=== PATIENT | female | born 1965 | race Caucasian/White ===

== ENCOUNTER 2017-04-07 08:37 | Emergency (ER) | payer BC ==
[2017-04-07 08:47] VITALS: BP 105/59
--- NOTE | 2017-04-07 09:08 | UC ---
Ave Traylor Thomas, scribed for Lesli Cooley MD on 04/07/17 at 0905 . Ear Complaint HPI - HPI Summary HPI Summary: The pt is a 51 y/o F presenting to E c/o bilateral ear pain that began last week. She describes pruritus in her ear and some drainage. She rates the pain 3/ 10 and describes it as aching, burning, and stabbing. Pt additionally c/o ear drainage (gooey). Pt denies fevers, chills, rashes, sinus pressure, and sore throat. Pt has not applied any drops to her ears. Pt states last ear infection approx 1 year ago. PT was swimming in [place] 1 month ago. No sinus pain, grewal, vision changes. PMHx: Lyme disease, asthma (as child), negative DM. 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 SHx: daily alcohol, former smoker, no illicit drugs. FHx: [place]. She last swam in [facility] a month ago. Her last episode of ear infection was last year. She last had antibiotics last year. She also reports prior episodes of yeast overgrowth in her ears. Patients medication reviewed this visit. - History of Current Complaint Chief Complaint: UCEar Stated Complaint: EAR PAIN Time Seen by Provider: 04/07/17 08:50 Hx Obtained From: Patient Onset/Duration: Lasting Weeks - 1 week, Still Present Severity Initially: Mild Severity Currently: Mild Pain Intensity: 3 Pain Scale Used: 0-10 Numeric Aggravating Factors: Nothing Alleviating Factors: Nothing Associated Signs/Symptoms: Positive: Discharge. Negative: Trauma to Ear Related History: Other (Noted In Comments) - Prior ear infections - Allergies/Home Medications Allergies/Adverse Reactions: Allergies Allergy/AdvReac Type Severity Reaction Status Date / Time Seasonal Allergy Congestion Uncoded 04/07/17 08:47 Home Medications: Home Medications Chhinese Herbs 04/07/17 [History] Progesterone (Bulk) [Progesterone Concentrate] 04/07/17 [History] PMH/Surg Hx/FS Hx/Imm Hx Previously Healthy: No - Lyme disease Other Endocrine History: Negative for DM Respiratory History: Asthma - childhood - Surgical History Surgical History: Yes Surgery Procedure, Year, and Place: Hysterectomy, fibrous adenoma right breast - Family History Known Family History: Positive: Other - POS: [place] Negative: Diabetes - Social History Occupation: Employed Full-time Lives: Alone Alcohol Use: Daily Alcohol Amount: 1 glass of wine a night Substance Use Type: None Smoking Status (MU): Former Smoker When Did the Patient Quit Smoking/Using Tobacco: 16 years ago Review of Systems Constitutional: Negative Skin: Negative Eyes: Negative ENT: Ear Ache - bilateral, 3/10, aching/burning/stabbing, Other - POS: ear drainage ("gooey") Respiratory: Negative Cardiovascular: Negative Gastrointestinal: Negative Genitourinary: Negative Motor: Negative Neurovascular: Negative Musculoskeletal: Negative Neurological: Negative Psychological: Negative All Other Systems Reviewed And Are Negative: Yes Physical Exam Triage Information Reviewed: Yes Appearance: Well-Appearing, No Pain Distress, Well-Nourished Vital Signs: Initial Vital Signs Temp 98.6 F 04/07/17 08:41 Pulse 59 04/07/17 08:41 Resp 18 04/07/17 08:41 BP 105/59 04/07/17 08:41 Pulse Ox 100 04/07/17 08:41 Vital Signs Reviewed: Yes Eye Exam: Normal Eyes: Positive: Conjunctiva Clear ENT: Positive: Hearing grossly normal, Pharynx normal, TMs normal, Other: - canals inflammed, erythema no odor, no appreciable discharge No mastoid pain. Negative: TM bulging, TM dull, TM red, Tonsillar swelling, Tonsillar exudate Dental Exam: Normal Neck exam: Normal Neck: Positive: Supple, Nontender Respiratory Exam: Normal Respiratory: Positive: Chest non-tender, Lungs clear, Normal breath sounds, No respiratory distress, No accessory muscle use Cardiovascular Exam: Normal Cardiovascular: Positive: RRR, No Murmur, Pulses Normal Abdominal Exam: Normal Abdomen Description: Positive: Nontender, No Organomegaly Musculoskeletal Exam: Normal Neurological Exam: Normal Neurological: Positive: Alert Psychological Exam: Normal Psychological: Positive: Normal Response To Family Skin Exam: Normal Ear Complaint Course/Dx - Course Course Of Treatment: The patient is a 51 y/o F presenting to [facility] [place] with bilateral ear pain and drainage progressive x 1 week Pt swimming 4 weeks ago. On exam canals inflammed, erythema. Prabhakar Rx ciprodex. PCP f/u. return precautions. She was instructed to follow up with her PCP. - Differential Dx/Diagnosis Provider Diagnoses: otitis externa bilateral Discharge - Discharge Plan Condition: Stable Disposition: HOME Prescriptions: Ciproflox/Dexameth OTIC.SUSP* [Ciprodex OTIC.SUSP*] 2 drop .SEE ORDER TID #1 btl Patient Education Materials: Otitis Externa (ED) Referrals: Linda Shin MD [Primary Care Provider] - Additional Instructions: - Your ear canal is inflammed and red. There is also a small scratch in your left canal - either from Q tip of your finger nail - Apply ear drops as prescribed. these contain a steroid and will help with itching and discomfort - It is recommended you contact your doctor to arrange a follow-up appointment. Contact your doctor or return with questions or concerns The documentation as recorded by the Aev wetzel Thomas accurately reflects the service I personally performed and the decisions made by , Lesli Cooley MD.
== END 2017-04-07 09:15 | disposition home or self-care (01) ==
LOC: UCEAST 08:37
DX: H60.93 Unspecified otitis externa, bilateral (principal); Z87.891 Personal history of nicotine dependence
CPT/HCPCS: 99212; G0463

== ENCOUNTER 2017-04-13 08:36 | Emergency (ER) | payer BC ==
[2017-04-13 08:40] VITALS: BP 106/70
--- NOTE | 2017-04-13 08:49 | UC ---
Skin Complaint HPI - HPI Summary HPI Summary: 6 DAYS OF STREAKY, RED, BLISTERY RASH ON LEGS AND ARMS. WAS OUT GARDENING PRIOR TO ONSET. FEELS LIKE POISON NII. NO FEVER. - History of Current Complaint Chief Complaint: UCRash Time Seen by Provider: 04/13/17 08:48 Stated Complaint: RASH Hx Obtained From: Patient Hx Last Menstrual Period: hysterectomy Onset/Duration: Gradual Onset, Lasting Days, Still Present Timing: Constant Onset Severity: Moderate Current Severity: Moderate Pain Intensity: 8 Pain Scale Used: 0-10 Numeric Location: Other - ARMS AND LEGS Character: Pruritus, Redness, Raised Aggravating: Touch Alleviating: Nothing Associated Signs & Symptoms: Positive: Rash - Allergy/Home Medications Allergies/Adverse Reactions: Allergies Allergy/AdvReac Type Severity Reaction Status Date / Time Seasonal Allergy Congestion Uncoded 04/13/17 08:40 Review of Systems Constitutional: Negative Skin: Rash Respiratory: Negative Cardiovascular: Negative Gastrointestinal: Negative All Other Systems Reviewed And Are Negative: Yes PMH/Surg Hx/FS Hx/Imm Hx Respiratory History: Asthma - Surgical History Surgical History: Yes Surgery Procedure, Year, and Place: Hysterectomy, fibrous adenoma right breast - Family History Known Family History: Positive: Other - POS: [place] Negative: Diabetes - Social History Alcohol Use: Daily Alcohol Amount: 1 glass of wine a night Substance Use Type: None Smoking Status (MU): Former Smoker When Did the Patient Quit Smoking/Using Tobacco: 16 years ago Physical Exam Triage Information Reviewed: Yes Appearance: Well-Appearing, No Pain Distress, Well-Nourished Vital Signs: Initial Vital Signs Temp 98.2 F 04/13/17 08:36 Pulse 74 04/13/17 08:36 Resp 20 04/13/17 08:36 BP 106/70 04/13/17 08:36 Pulse Ox 100 04/13/17 08:36 Vital Signs Reviewed: Yes Eyes: Positive: Conjunctiva Clear ENT: Positive: Hearing grossly normal Neck: Positive: Supple Respiratory: Positive: No respiratory distress, No accessory muscle use Cardiovascular: Positive: Pulses Normal Abdomen Description: Positive: Soft Musculoskeletal: Positive: No Edema Neurological: Positive: Alert Psychological: Positive: Age Appropriate Behavior Skin: Positive: rashes - STREAKY, VESICULAR RASH WITH SLIGHT SURROUNDING ERYTHEMA AND EXCORIATION OVER ARMS AND LEGS Course/Dx - Diagnoses Provider Diagnoses: CONTACT DERMATITIS Discharge - Discharge Plan Condition: Stable Disposition: HOME Prescriptions: Triamcinolone 0.1% CREAM(NF) [Kenalog Cream 0.1%(NF)] 1 applic TOPICAL TID PRN # 1 tube PRN Reason: Itching predniSONE TAB* [Deltasone TAB*] 50 mg PO DAILY #7 tab Patient Education Materials: Contact Dermatitis (ED) Referrals: Linda Shin MD [Primary Care Provider] - If Needed Additional Instructions: USE DAILY MOISTURIZING LOTION AVOID HEAT AND HOT WATER TAKE OTC ANTIHISTAMINE DAILY (CLARITIN (LORATADINE), ZYRTEC (CETIRIZINE) OR LIANE (FEXOFENADINE) IN THE MORNING, BENADRYL AT NIGHT) DO NOT SCRATCH KEEP COOL, CLEAN AND DRY SEEK FOLLOW-UP IF NOT IMPROVING EXPECTED.
== END 2017-04-13 09:15 | disposition home or self-care (01) ==
LOC: UCEAST 08:36
DX: L25.9 Unspecified contact dermatitis, unspecified cause (principal); Z90.710 Acquired absence of both cervix and uterus; J45.909 Unspecified asthma, uncomplicated; Z87.891 Personal history of nicotine dependence
CPT/HCPCS: 99212; G0463

== ENCOUNTER 2017-04-15 10:59 | Emergency (ER) | payer BC ==
[2017-04-15 11:33] VITALS: BP 112/53
--- NOTE | 2017-04-15 12:30 | UC ---
William Traylor Alfonso, scribed for Nydia Alva MD on 04/15/17 at 1136 . Skin Complaint HPI - HPI Summary HPI Summary: This patient is a 51 year old F presenting to [facility] accompanied by with a chief complaint of a diffuse rash which began approximately one week ago, was diagnosed as poison hunter dermatitis 04/13/17 treated with topical and oral steroids and pt presents today with concern that the poison hunter is now infected because it is more red and painful and draining more. The CC is described as painful and pruritic. The patient rates the pain 5/10 in severity. Symptoms aggravated and alleviated by nothing. Patient reports throat pain, dizziness, and haziness. She was seen at [facility] two days ago with a diagnosis of contact dermatitis and prescriptions for oral prednisone and topical triamcinolone. At triage pt "just doesn't feel well" and is noted with very irregular heart rate, in the 40's to 60's. EKG done. PMHx of Lyme disease over a year ago, and a re- exposure this season without further treatment. Patients medications reviewed this visit. Allergies noted. - History of Current Complaint Chief Complaint: UCRash Stated Complaint: SKIN COMPLAINT Hx Obtained From: Patient Hx Last Menstrual Period: hysterectomy Onset/Duration: Sudden Onset, Lasting Weeks - 1, Still Present Skin Exposure Onset/Duration: Weeks Ago - 1 Timing: Constant Onset Severity: Moderate Current Severity: Moderate Pain Intensity: 5 Pain Scale Used: 0-10 Numeric Location: Diffuse Character: Pruritus, Pain, Redness, Raised Aggravating: Nothing Alleviating: Nothing Associated Signs & Symptoms: Positive: Weakness, Rash, Lightheadedness, Drainage. Negative: Cough, Throat Tightening, Red Streaks Related History: Possible Reaction to: Environmental Exposure - poison hunter and ticks - Allergy/Home Medications Allergies/Adverse Reactions: Allergies Allergy/AdvReac Type Severity Reaction Status Date / Time Seasonal Allergy Congestion Uncoded 04/15/17 11:13 Review of Systems Constitutional: Other - "just doesn't fell well" Skin: Rash ENT: Other - Positive throat pain. Musculoskeletal: Arthralgia Neurological: Other - Positive dizziness and haziness. All Other Systems Reviewed And Are Negative: Yes PMH/Surg Hx/FS Hx/Imm Hx Previously Healthy: No - Lyme disease Other Endocrine History: Lyme disease - Surgical History Surgical History: Yes Surgery Procedure, Year, and Place: Hysterectomy, fibrous adenoma right breast - Family History Known Family History: Positive: Other - POS: [place] Negative: Diabetes - Social History Lives: With Family Alcohol Use: Daily Alcohol Amount: 1 glass of wine a night Substance Use Type: None Smoking Status (MU): Former Smoker When Did the Patient Quit Smoking/Using Tobacco: 16 years ago Physical Exam Triage Information Reviewed: Yes Appearance: Well-Appearing, Well-Nourished, Pain Distress Vital Signs: Initial Vital Signs Temp 97.7 F 04/15/17 11:13 Pulse 50 04/15/17 11:13 Resp 16 04/15/17 11:13 BP 112/53 04/15/17 11:13 Pulse Ox 100 04/15/17 11:13 Vital Signs Reviewed: Yes Eyes: Positive: Conjunctiva Clear ENT: Positive: Normal ENT inspection. Negative: Muffled/hoarse voice Neck: Positive: Supple Respiratory: Positive: Lungs clear, Normal breath sounds, No respiratory distress, No accessory muscle use Cardiovascular: Positive: Brisk Capillary Refill, Bradycardia - 40s-60s, irregular, pauses noted, Other: - IRR Abdomen Description: Positive: Nontender, Soft Bowel Sounds: Positive: Present Musculoskeletal: Positive: Strength Intact, ROM Intact Neurological: Positive: Alert Psychological: Positive: Other: - Anxious and tearful. Skin: Positive: rashes - Extensive excoriated lesions all extremities and abdomen which is consistent with poison hunter. Surrounding redness consistent with secondary infection. Diagnostics - EKG Cardiac Rate: NL - BPM 64 Cardiac Rhythm: Sinus: Normal - 1118. PAC. Sinus pause. Normal AV/IV CT. Normal QTc. Normal axis. No prior EKG to compare. Course/Dx - Course Course Of Treatment: This patient is a 51 year old F presenting to [facility] accompanied by with a chief complaint of a diffuse rash which began approximately one week ago. The CC is described as painful and pruritic. The patient rates the pain 5/10 in severity. Symptoms aggravated and alleviated by nothing. Patient reports throat pain, dizziness, and haziness. She was seen at [facility] two days ago with a diagnosis of contact dermatitis and prescriptions for oral prednisone and topical triamcinolone. PMHx of Lyme disease. Patients medications reviewed this visit. Allergies noted. Patient will be transferred by ambulance to [facility] for further evaluation of irregular bradycardic heart rate in this pt with hx Lyme disease, also for further evaluation of secondary infection of poison hunter for treatment with antibiotics. Patient and are agreeable with this plan. - Differential Diagnoses - Skin Complaint Differential Diagnoses: Cellulitis, Contact Dermatitis, Local Allergic Reaction , Tick Born Illness, Other - AV block, conduction abnormality secondary to Lyme disease - Diagnoses Provider Diagnoses: Cellulitis, poison hunter dermatitis, cardiac arrhythmia, history of Lyme ds. Discharge - Discharge Plan Condition: Stable Disposition: [facility] Discharge Disposition Comment: [facility] [place]. Referrals: Linda Shin MD [Primary Care Provider] - The documentation as recorded by the William wetzel Alfonso accurately reflects the service I personally performed and the decisions made by , Nydia Alva MD.
== END 2017-04-15 12:44 | disposition short-term general hospital (02) ==
LOC: UCEAST 10:59
DX: L03.90 Cellulitis, unspecified (principal); L23.7 Allergic contact dermatitis due to plants, except food; I49.9 Cardiac arrhythmia, unspecified; Z86.19 Personal history of other infectious and parasitic diseases; Z87.891 Personal history of nicotine dependence
CPT/HCPCS: 93005; 99213; G0463

== ENCOUNTER 2017-04-15 13:03 | Emergency (ER) | payer BC ==
[2017-04-15] MEDS ORDERED: Aspirin Low Dose CHEW TAB* 81 MG PO ONE (13:45)
[2017-04-15] MEDS ORDERED: NS 0.9% 1000 ML* 1,000 ML IV ONE (13:45)
[2017-04-15 14:09] LABS: Hematocrit 43 % (35-47); Hemoglobin 13.9 g/dl (12.0-16.0); Mean Corpuscular HGB Conc 33 g/dl (31-36); Mean Corpuscular Hemoglobin 32 pg (27-31); Mean Corpuscular Volume 97 fL (80-97); Mean Platelet Volume 10 um3 (7.4-10.4); Red Blood Count 4.38 10^6/ul (4.0-5.4); Red Cell Distribution Width 14 % (10.5-15); White Blood Count 7.6 10^3/ul (3.5-10.8)
[2017-04-15 14:19] VITALS: BP 105/58
[2017-04-15 14:22] LABS: Albumin 4.2 g/dL (3.2-5.2); BUN/Creatinine Ratio 17.6 (8-20); Calcium 9.4 mg/dL (8.6-10.3); Globulin 2.8 g/dL (2-4); Magnesium 2.2 mg/dL (1.9-2.7); Total Bilirubin 1.4 mg/dL (0.2-1.0)
[2017-04-15 14:24] LABS: Troponin I 0.02 ng/mL (<0.04)
[2017-04-15 14:31] LABS: T4 6.22 mcg/mL (6.09-12.23)
--- NOTE | 2017-04-15 14:31 | RAD ---
HISTORY: Weakness COMPARISONS: None VIEWS:1: Single frontal portable view of the chest at 2:10 PM FINDINGS: LINES AND TUBES: None. CARDIOMEDIASTINAL SILHOUETTE: The cardiomediastinal silhouette is normal for portable technique. PLEURA: The costophrenic angles are sharp. No pleural abnormalities are noted. LUNG PARENCHYMA: The lungs are clear. ABDOMEN: The upper abdomen is clear. There is no subphrenic gas. BONES AND SOFT TISSUES: No bone or soft tissue abnormalities are noted. IMPRESSION: NO ACTIVE CARDIOPULMONARY DISEASE.
[2017-04-15 14:32] LABS: TSH (Thyroid Stimulating Horm) 3.66 mcIU/mL (0.34-5.60)
[2017-04-15 14:41] LABS: Potassium 4.1 mmol/L (3.5-5.0)
--- NOTE | 2017-04-15 19:12 | ED ---
Ave Traylor Thomas, scribed for Michael Laguna MD on 04/15/17 at 1338 . Palpitations / Dysrhythmia - HPI Summary HPI Summary: The pt is a 51 y/o F referred from [facility] and presenting to the ED c/o bradycardia. She also has pruritic erythematous rashes on her bilateral upper legs and forearms after exposure to poison ashley a week ago. The patient notes that her wounds have been open until yesterday. She has been putting Neosporin on her rashes. The pain is rated 1/10. The pain is aggravated and alleviated by nothing. Pt additionally c/o vision changes. PMHx: Lyme disease, asthma. PSHx: hysterectomy. SHx: former smoker, daily alcohol, no illicit drugs. FHx: [place]. She was a patient at [facility] three days ago, where she was discharged and prescribed prednisone, which she has been on for the last 3 days. - History of Current Complaint Chief Complaint: EDDysrhythmPalp Time Seen by Provider: 04/15/17 13:32 Hx Obtained From: Patient Onset/Duration: Sudden Onset, Lasting Hours - referred from [facility] and BIBA, Resolved Timing: Constant Character: Slow Aggravating: Nothing Alleviating: Nothing - Allergy/Home Medications Allergies/Adverse Reactions: Allergies Allergy/AdvReac Type Severity Reaction Status Date / Time Seasonal Allergy Congestion Uncoded 04/15/17 11:13 PMH/Surg Hx/FS Hx/Imm Hx Previously Healthy: No Endocrine/Hematology History: Denies: Hx Diabetes, Hx Thyroid Disease Cardiovascular History: Denies: Hx Hypertension Respiratory History: Reports: Hx Asthma - as a child Denies: Hx Chronic Obstructive Pulmonary Disease (COPD) GI History: Denies: Hx Ulcer Musculoskeletal History: Denies: Hx Osteoporosis - Surgical History Surgery Procedure, Year, and Place: Hysterectomy, fibrous adenoma right breast Infectious Disease History: Denies: Hx Clostridium Difficile, Hx Hepatitis, Hx Human Immunodeficiency Virus (HIV), Hx of Known/Suspected MRSA, Hx Shingles, Hx Tuberculosis, Hx Known/ Suspected VRE, Hx Known/Suspected VRSA, History Other Infectious Disease, Traveled Outside the [place] in Last 30 Days - Family History Known Family History: Positive: Other - POS: [place] Negative: Diabetes - Social History Alcohol Use: Daily Alcohol Amount: 1 glass of wine a night Substance Use Type: Reports: None Smoking Status (MU): Former Smoker Review of Systems Negative: Fever Positive: Other - POS: vision changes Positive: Other - POS: bradycardia Positive: Rash - pruritic, erythematous, s/p poison ashley exposure a week ago All Other Systems Reviewed And Are Negative: Yes Physical Exam - Summary Physical Exam Summary: VITAL SIGNS: Reviewed. GENERAL: ~Patient is a well-developed and nourished female who is lying comfortable in the stretcher. ~Patient is not in any acute respiratory distress. HEAD AND FACE: No signs of trauma. ~No ecchymosis, hematomas or skull depressions. No sinus tenderness. EYES: PERRLA, EOMI x 2, No injected conjunctiva, no nystagmus. EARS: Hearing grossly intact. Ear canals and tympanic membranes are within normal limits. MOUTH: Oropharynx within normal limits. NECK: Supple, trachea is midline, no adenopathy, no JVD, no carotid bruit, no c- spine tenderness, neck with full ROM. CHEST: Symmetric, no tenderness at palpation LUNGS: Clear to auscultation bilaterally. No wheezing or crackles. CVS: Regular rate and rhythm, S1 and S2 present, no murmurs or gallops appreciated. ABDOMEN: Soft, non-tender. No signs of distention. No rebound no guarding, and no masses palpated. Bowel sounds are normal. EXTREMITIES: FROM in all major joints, no edema, no cyanosis or clubbing. NEURO: Alert and oriented x 3. No acute neurological deficits. Speech is normal and follows commands. SKIN: Erythematous rashes with yellow discharge on bilateral lower extremities as well as bilateral forearms. Dry and warm Triage Information Reviewed: Yes Vital Signs On Initial Exam: Initial Vitals Temp Pulse Resp BP Pulse Ox 98.4 F 66 20 108/85 98 04/15/17 13:16 04/15/17 13:16 04/15/17 13:16 04/15/17 13:16 04/15/17 13:16 Vital Signs Reviewed: Yes Diagnostics - Vital Signs Vital Signs Temp Pulse Resp BP Pulse Ox 04/15/17 13:16 98.4 F 66 20 108/85 98 - Laboratory Lab Results: Lab Results 04/15/17 04/15/17 04/15/17 Range/Units 11:25 11:25 14:15 WBC 7.6 (3.5-10.8) 10^3/ul RBC 4.38 (4.0-5.4) 10^6/ul Hgb 13.9 (12.0-16.0) g/dl Hct 43 (35-47) % MCV 97 (80-97) fL MCH 32 H (27-31) pg MCHC 33 (31-36) g/dl RDW 14 (10.5-15) % Plt Count 238 (150-450) 10^3/ul MPV 10 (7.4-10.4) um3 Neut % (Auto) 74.2 (38-83) % Lymph % (Auto) 19.7 L (25-47) % [place] % (Auto) 4.0 (1-9) % Eos % (Auto) 1.6 (0-6) % Baso % (Auto) 0.5 (0-2) % Absolute Neuts (auto) 5.6 (1.5-7.7) 10^3/ul Absolute Lymphs (auto) 1.5 (1.0-4.8) 10^3/ul Absolute Monos (auto) 0.3 (0-0.8) 10^3/ul Absolute Eos (auto) 0.1 (0-0.6) 10^3/ul Absolute Basos (auto) 0 (0-0.2) 10^3/ul Absolute Nucleated RBC 0 10^3/ul Nucleated RBC % 0 Sodium 140 (133-145) mmol/L Potassium 4.1 (3.5-5.0) mmol/L Chloride 105 (101-111) mmol/L Carbon Dioxide 27 (22-32) mmol/L Anion Gap 8 (2-11) mmol/L BUN 15 (6-24) mg/dL Creatinine 0.85 (0.51-0.95) mg/dL Est GFR ( Amer) 90.0 (>60) Est GFR (Non-Af Amer) 70.0 (>60) BUN/Creatinine Ratio 17.6 (8-20) Glucose 100 (70-100) mg/dL Lactic Acid 1.0 (0.5-2.0) mmol/L Calcium 9.4 (8.6-10.3) mg/dL Magnesium 2.2 (1.9-2.7) mg/dL Total Bilirubin 1.40 H (0.2-1.0) mg/dL AST 24 (13-39) U/L ALT 17 (7-52) U/L Alkaline Phosphatase 54 (34-104) U/L Total Creatine Kinase 36 (10-223) U/L CK-MB (CK-2) 1.5 (0.6-6.3) ng/mL Troponin I 0.02 (<0.04) ng/mL Total Protein 7.0 (6.4-8.9) g/dL Albumin 4.2 (3.2-5.2) g/dL Globulin 2.8 (2-4) g/dL Albumin/Globulin Ratio 1.5 (1-3) TSH 3.66 (0.34-5.60) mcIU/mL Thyroxine (T4) 6.22 (6.09-12.23) mcg/mL Result Diagrams: 04/15/17 11:25 04/15/17 11:25 Lab Statement: Any lab studies that have been ordered have been reviewed, and results considered in the medical decision making process. - Radiology CXR Xray Interpretation: No Acute Changes - No active cardiopulmonary disease Radiology Interpretation Completed By: Radiologist - EKG 13:19 Cardiac Rate: NL - 66 BPM EKG Interpretation: Sinus rhythm with no ST elevations. Course/Dx - Course Assessment/Plan: The pt is a 51 y/o F referred from [facility] and presenting to the ED c/o bradycardia. She also has pruritic erythematous rashes on her bilateral upper legs and forearms after exposure to poison ashley a week ago. The patient notes that her wounds have been open until yesterday. She has been putting Neosporin on her rashes. The pain is rated 1/10. The pain is aggravated and alleviated by nothing. Pt additionally c/o vision changes. PMHx: Lyme disease, asthma. PSHx: hysterectomy. SHx: former smoker, daily alcohol, no illicit drugs. FHx: [place]. She was a patient at [facility] three days ago, where she was discharged and prescribed prednisone, which she has been on for the last 3 days. Test results who no significant abnormality. EKG reveals NSR without ST elevations. CXR shows no acute pathology. The patient was observed in the ED for a couple hours and there was no abnormal rhythm in the management of the patient. The patient continues to be asymptomatic. Pt does not have an increase in WBC. Therefore, I do not believe that the patient will benefit from systemic antibiotics. I think she will benefit more from topical antibiotics. I discussed the findings with the patient and she agrees to this plan to continue with topical antibiotics. She was told to finish the treatment of prednisone and was prescribed Benadryl as well. The patient understands, all concerns were addressed, and there are no further questions from the patient. She is alert and oriented x3 and she is hemodynamically stable. I discussed all the findings and test results with the patient. Patient was instructed to return to the emergency room immediately if any of the symptoms return or worsens. Plan of care was discussed with the patient and understands and agrees. All questions were answered at patient satisfaction. There were no further complaints or concerns. - Diagnoses Provider Diagnoses: Poison ashley, Weakness Discharge - Discharge Plan Condition: Stable Disposition: HOME Patient Education Materials: Poison Ashley (ED), Weakness (ED) Referrals: Linda Shin MD [Primary Care Provider] - 3 Days The documentation as recorded by the Ave wetzel Thomas accurately reflects the service I personally performed and the decisions made by me, Michael Laguna MD.
== END 2017-04-15 15:42 | disposition home or self-care (01) ==
LOC: ED 13:03
DX: L23.7 Allergic contact dermatitis due to plants, except food (principal); R53.1 Weakness
CPT/HCPCS: 36415; 71010; 80053; 82550; 82553; 83605; 83735; 84436; 84443; 84484; 85025; 93005; 99282; A9270-GY

== ENCOUNTER 2021-01-27 17:29 | Observation (INO) ==
[2021-01-27 21:39] LABS: ABS Eosinophils 0.2 10^3/ul (0-0.6); ABS Lymphocytes 1.1 10^3/ul (1.0-4.8); ABS Monocytes 1.4 10^3/ul (0-0.8); ABS Neutrophils 14.1 10^3/ul (1.5-7.7); Eosinophil % 1.2 %; Hematocrit 26 % (35-47); Hemoglobin 9.1 g/dL (12.0-16.0); Lymphocyte % 6.7 %; Mean Corpuscular HGB Conc 35 g/dL (31-36); Mean Corpuscular Hemoglobin 35 pg (27-31); Mean Corpuscular Volume 100 fL (80-97); Mean Platelet Volume 8.9 fL (7.4-10.4); Platelet Count 208 10^3/uL (150-450); Red Blood Count 2.63 10^6 /uL (3.70-4.87); Red Cell Distribution Width 16 % (10-15); White Blood Count 16.8 10^3/uL (3.5-10.8)
[2021-01-27 21:48] LABS: INR 1.09 (0.82-1.09)
[2021-01-27 22:02] LABS: ALT 41 U/L (7-52); AST 27 U/L (13-39); Albumin/Globulin Ratio 1.9 (1-3); Alkaline Phosphatase 145 U/L (35-149); Anion Gap 6 mmol/L (2-11); Blood Urea Nitrogen 4 mg/dL (6-24); CO2 Carbon Dioxide 24 mmol/L (22-32); Calcium 8.5 mg/dL (8.6-10.3); Chloride 109 mmol/L (101-111); EGFR African American 124.7 (>60); Globulin 2.1 g/dL (2-4); Glucose 102 mg/dL (70-100); Potassium 3.5 mmol/L (3.5-5.0); Sodium 139 mmol/L (135-145); Total Protein 6.1 g/dL (6.4-8.9)
[2021-01-27 22:05] LABS: Troponin I 0.07 ng/mL (<0.03)
[2021-01-27] MEDS ORDERED: Lactated Ringers 1000 ml BAG 1,000 ML IV ONE (23:18)
[2021-01-27] MEDS ORDERED: Ondansetron 4 mg VIAL 2 MG/ML 2 ml VIAL IV ONE (23:18)
[2021-01-27] MEDS ORDERED: Famotidine IV 10 MG/ML 2 ml VIAL (20 mg) IV SLOW PU ONE (23:18)
[2021-01-27] MEDS ORDERED: Al Hydrox/Mg Hydrox/Simet LIQ 30 ML UDC PO ONE (23:37)
[2021-01-27] MEDS ORDERED: Al Hydrox/Mg Hydrox/Simet LIQ 30 ML UDC ONE (23:37)
[2021-01-27] MEDS ORDERED: Ondansetron 4 mg VIAL 2 MG/ML 2 ml VIAL IV PRN (23:43)
[2021-01-28 00:03] LABS: Troponin I 0.06 ng/mL (<0.03)
[2021-01-28] MEDS: Enoxaparin 40 MG/0.4 ML SYR SUBCUT SCH ×2 (01:53→22:13)
[2021-01-28] MEDS ORDERED: NS 0.9% 500 ml BAG 500 ML IV ONE (03:50)
[2021-01-28 04:48] LABS: ABS Eosinophils 0.4 10^3/ul (0-0.6); ABS Lymphocytes 1.4 10^3/ul (1.0-4.8); ABS Monocytes 1.3 10^3/ul (0-0.8); Eosinophil % 2.5 %; Hematocrit 24 % (35-47); Hemoglobin 8.3 g/dL (12.0-16.0); Lymphocyte % 9.8 %; Mean Corpuscular HGB Conc 35 g/dL (31-36); Mean Corpuscular Hemoglobin 35 pg (27-31); Mean Corpuscular Volume 100 fL (80-97); Mean Platelet Volume 9.3 fL (7.4-10.4); Platelet Count 200 10^3/uL (150-450); Red Blood Count 2.38 10^6 /uL (3.70-4.87); Red Cell Distribution Width 16 % (10-15); White Blood Count 14.1 10^3/uL (3.5-10.8)
[2021-01-28 05:10] LABS: Blood Urea Nitrogen 4 mg/dL (6-24); CO2 Carbon Dioxide 26 mmol/L (22-32); Calcium 8.3 mg/dL (8.6-10.3); Cholesterol 72 mg/dL; EGFR African American 115.7 (>60); EGFR Non-African American 95.6 (>60); Glucose 82 mg/dL (70-100); HDL Cholesterol 32.5 mg/dL; LDL Cholesterol 26 mg/dL; Potassium 3.4 mmol/L (3.5-5.0); Sodium 141 mmol/L (135-145); Triglycerides 67 mg/dL
[2021-01-28 05:15] LABS: Anion Gap 3 mmol/L (2-11); Chloride 112 mmol/L (101-111)
[2021-01-28 05:16] LABS: Troponin I 0.06 ng/mL (<0.03)
[2021-01-28] MEDS ORDERED: Potassium Chlor 20 meq TAB.ER PO ONE (08:29)
[2021-01-28 08:53] LABS: Magnesium 1.8 mg/dL (1.9-2.7)
[2021-01-28 09:45] LABS: Troponin I 0.06 ng/mL (<0.03)
[2021-01-28 11:44] LABS: % Iron Saturation 21 % (15-55); Iron 59 ug/dL (50-212); Total Iron Binding Capacity 281 mcg/dL (250-450); Transferrin 201 mg/dL (203-362); Unsaturated Iron Binding < 266 ug/dL
[2021-01-28 11:51] LABS: Ferritin 209.6 ng/mL (11-307)
[2021-01-28 11:55] LABS: Vitamin B12 > 1450 pg/mL (180-914)
[2021-01-28] MEDS ORDERED: Al Hydrox/Mg Hydrox/Simet LIQ 30 ML UDC PO PRN (13:52)
[2021-01-29 07:42] LABS: Hematocrit 25 % (35-47); Hemoglobin 8.3 g/dL (12.0-16.0); Mean Corpuscular HGB Conc 33 g/dL (31-36); Mean Corpuscular Hemoglobin 33 pg (27-31); Mean Corpuscular Volume 100 fL (80-97); Mean Platelet Volume 8.8 fL (7.4-10.4); Platelet Count 210 10^3/uL (150-450); Red Cell Distribution Width 17 % (10-15); White Blood Count 16.7 10^3/uL (3.5-10.8)
[2021-01-29] MEDS ORDERED: Aminophylline 25 MG/ML VIAL ONE ×2 (08:43→09:34)
[2021-01-29] MEDS ORDERED: Regadenoson 0.4 MG/5 ML SYRINGE ONE ×2 (08:43→09:34)
[2021-01-29 11:37] VITALS: BP 107/63
[2021-01-29] MEDS ORDERED: COVID-19 VACCINE, AD26(JANSSEN)/PF 0.5 ML IM ONE (14:30)
== END 2021-01-29 15:50 | disposition home or self-care (01) ==
LOC: MEDTELE 17:29 → ED 17:29 → MEDTELE 01-28 00:31
PROVIDERS: ADMIT Internal Medicine; ATTEND Pediatrics

== ENCOUNTER 2021-10-01 13:16 | Observation (INO) ==
[2021-10-01 13:49] LABS: ABS Eosinophils 0.1 10^3/ul (0-0.6); ABS Lymphocytes 0.6 10^3/ul (1.0-4.8); ABS Monocytes 0.4 10^3/ul (0-0.8); ABS Neutrophils 2.7 10^3/ul (1.5-7.7); Eosinophil % 1.8 %; Hematocrit 39 % (35-47); Hemoglobin 13.6 g/dL (12.0-16.0); Lymphocyte % 16.6 %; Mean Corpuscular HGB Conc 35 g/dL (31-36); Mean Corpuscular Hemoglobin 34 pg (27-31); Mean Corpuscular Volume 96 fL (80-97); Mean Platelet Volume 8.1 fL (7.4-10.4); Platelet Count 232 10^3/uL (150-450); Red Blood Count 4.03 10^6 /uL (3.70-4.87); Red Cell Distribution Width 14 % (10-15); White Blood Count 3.8 10^3/uL (3.5-10.8)
[2021-10-01 14:04] LABS: INR 1.05 (0.86-1.15)
[2021-10-01 14:05] LABS: Albumin 4.4 g/dL (3.2-5.2); Albumin/Globulin Ratio 1.6 (1-3); Calcium 9.6 mg/dL (8.6-10.3); Globulin 2.8 g/dL (2-4); Potassium 3.5 mmol/L (3.5-5.0); Total Bilirubin 1.3 mg/dL (0.2-1.0); Total Protein 7.2 g/dL (6.4-8.9); eGFR CKD-EPI 86.7 (>60)
[2021-10-01 14:07] LABS: Troponin I 0.01 ng/mL (<0.03)
[2021-10-01 15:05] LABS: Magnesium 1.6 mg/dL (1.9-2.7)
[2021-10-01] MEDS ORDERED: Iohexol 350 (CONTRAST) 500 ML MDV IV ONE (15:14)
[2021-10-01 17:23] LABS: T4, Total 9.43 mcg/dL (6.09-12.23)
[2021-10-01 17:25] LABS: TSH Ultra Thyroid Stim Horm 2.72 mcIU/mL (0.34-5.60)
[2021-10-01 17:32] LABS: Total T3 77 ng/dL (87-178)
[2021-10-01] MEDS ORDERED: Potassium Chloride LIQUID 20 MEQ/15 ML LIQUID PO ONE (20:34)
[2021-10-01] MEDS ORDERED: Magnesium Sulfate 2 gm BAG 2 GM/50 ML BAG IVPB ONE (20:34)
[2021-10-01 21:38] LABS: Vitamin B12 375 pg/mL (180-914)
[2021-10-01] MEDS: Aspirin EC 81 mg TAB.EC (enteric coated) PO SCH (21:45)
[2021-10-01] MEDS ORDERED: Enoxaparin 40 MG/0.4 ML SYR SUBCUT SCH (22:00)
[2021-10-01 22:14] LABS: INR 1.07 (0.86-1.15)
[2021-10-01 22:40] LABS: C Reactive Protein < 1.00 mg/L (<8.01)
[2021-10-02] MEDS: KCL 10 MEQ/50 ML IVPREMIX 10 MEQ/50 ML BAG IV SCH ×2 (00:08→01:41)
[2021-10-02 06:31] LABS: ABS Eosinophils 0.1 10^3/ul (0-0.6); ABS Lymphocytes 0.8 10^3/ul (1.0-4.8); ABS Monocytes 0.4 10^3/ul (0-0.8); ABS Neutrophils 1.8 10^3/ul (1.5-7.7); Eosinophil % 2.7 %; Hematocrit 38 % (35-47); Hemoglobin 12.9 g/dL (12.0-16.0); Lymphocyte % 25.6 %; Mean Corpuscular HGB Conc 34 g/dL (31-36); Mean Corpuscular Hemoglobin 33 pg (27-31); Mean Corpuscular Volume 97 fL (80-97); Mean Platelet Volume 8.4 fL (7.4-10.4); Platelet Count 231 10^3/uL (150-450); Red Blood Count 3.95 10^6 /uL (3.70-4.87); Red Cell Distribution Width 14 % (10-15); White Blood Count 3.1 10^3/uL (3.5-10.8)
[2021-10-02 06:45] LABS: Calcium 9.1 mg/dL (8.6-10.3); Magnesium 2.1 mg/dL (1.9-2.7); Potassium 4.4 mmol/L (3.5-5.0); eGFR CKD-EPI 86.7 (>60)
[2021-10-02] MEDS: Aspirin EC 81 mg TAB.EC (enteric coated) PO SCH (10:09)
[2021-10-02 16:29] VITALS: BP 117/70
[2021-10-02 20:36] LABS: Thyroid Peroxidase Antibodies 0.65 IU/mL (<9)
== END 2021-10-02 18:45 | disposition home or self-care (01) ==
LOC: ED 13:16 → EDHOLD 13:16 → SUATTDRO 20:16 → MEDTELE 23:38
PROVIDERS: ATTEND Student in an Organized Health Care Education/Training Program

== ENCOUNTER 2024-03-02 15:44 | Inpatient (IN) ==
[2024-03-02] MEDS: NS 0.9% 1000 ml BAG 1,000 ML IV ONE (16:56)
[2024-03-02] MEDS: Ondansetron 4 mg VIAL 2 MG/ML 2 ml VIAL IV ONE (17:07)
[2024-03-02 17:17] LABS: Hematocrit 34.1 % (35-45); Hemoglobin 11.4 g/dL (11.5-14.3); Mean Corpuscular Hgb Conc 33.4 g/dL (31-36); Mean Platelet Volume 8.4 fL (7.5-11.2); Platelet Count 203 10^3/uL (150-450); Red Blood Count 3.67 10^6/uL (3.63-4.92); Red Cell Distribution Width 18.8 % (12-17); White Blood Count 3.5 10^3/uL (3.8-11.8)
[2024-03-02 17:44] LABS: Albumin 3.6 g/dL (3.2-5.2); Albumin/Globulin Ratio 1.4 (1-3); C Reactive Protein 25.61 mg/L (<8.01); Calcium 11.5 mg/dL (8.6-10.3); Creatinine, Serum 1.17 mg/dL (0.51-0.95); Globulin 2.5 g/dL (2-4); Magnesium 2.2 mg/dL (1.9-2.7); Potassium 4.5 mmol/L (3.5-5.0); Total Bilirubin 0.7 mg/dL (0.2-1.0); Total Protein 6.1 g/dL (6.4-8.9); eGFR CKD-EPI 53.4 (>60)
[2024-03-02 17:58] LABS: TSH Ultra Thyroid Stim Horm 9.81 mcIU/mL (0.34-5.60)
[2024-03-02 18:02] LABS: ABS Eosinophils 0.1 10^3/uL (0.0-0.5); ABS Lymphocytes 1.3 10^3/uL (1.0-4.8); ABS Monocytes 0.4 10^3/uL (0.0-0.9); ABS Neutrophils 1.7 10^3/uL (1.5-7.6); ABS Nucleated RBC 0.14 10^3/ul; Eosinophil % 2.7 %; Lymphocyte % 37.1 %; Nucleated Red Blood Cells % 4.1 %/100WBC (0.0-0.8)
[2024-03-02 18:36] LABS: Urine Appearance Clear; Urine Bilirubin Negative (Negative); Urine Blood Negative (Negative); Urine Color Colorless; Urine Glucose Negative (Negative); Urine Ketones Negative (Negative); Urine Nitrite Negative (Negative); Urine Protein Negative (Negative); Urine Specific Gravity 1.005 (1.002-1.030); Urine Urobilinogen Negative (Negative); Urine pH 6.5 (5.0-8.0)
[2024-03-02 18:43] LABS: High Sensitivity Troponin 1 Hr 8 pg/mL (<15)
[2024-03-02] MEDS: Oxymetazoline 0.05% NASAL SPR 15 ML BTL BOTH NARES ONE (20:18)
[2024-03-02 23:34] LABS: Folate 9.89 ng/mL (5.90-24.80)
[2024-03-02] MEDS: Heparin 5000 UNITS/ML 1 mL VIAL SUBCUT SCH (23:45)
[2024-03-03 00:09] LABS: Ferritin 2762.6 ng/mL (11-307)
[2024-03-03] MEDS ORDERED: Ondansetron 4 mg VIAL 2 MG/ML 2 ml VIAL IV PRN (00:30)
[2024-03-03] MEDS: NS 0.9% 1000 ml BAG 1,000 ML IV SCH (02:27)
[2024-03-03] MEDS: NS 0.9% 500 ml BAG 500 ML IV ONE (04:19)
[2024-03-03 08:43] LABS: Hematocrit 30.5 % (35-45); Hemoglobin 10.2 g/dL (11.5-14.3); Mean Corpuscular Hemoglobin 31.8 pg (27-33); Mean Corpuscular Hgb Conc 33.5 g/dL (31-36); Mean Platelet Volume 8.3 fL (7.5-11.2); Platelet Count 170 10^3/uL (150-450); Red Blood Count 3.22 10^6/uL (3.63-4.92); Red Cell Distribution Width 18.7 % (12-17); White Blood Count 3.8 10^3/uL (3.8-11.8)
[2024-03-03 09:11] LABS: Anion Gap 11 mmol/L (2-16); Blood Urea Nitrogen 17 mg/dL (6-24); CO2 Carbon Dioxide 21 mmol/L (22-32); Calcium 9.8 mg/dL (8.6-10.3); Chloride 104 mmol/L (101-111); Creatinine, Serum 1.02 mg/dL (0.51-0.95); Glucose 70 mg/dL (70-100); Sodium 136 mmol/L (135-145)
[2024-03-03] MEDS ORDERED: Lorazepam PYXIS KEY PRN (09:21)
[2024-03-03] MEDS: LORazepam 2 mg VIAL 1 ml IV PUSH ONE (09:32)
[2024-03-03 09:34] LABS: ABS Eosinophils 0.1 10^3/uL (0.0-0.5); ABS Lymphocytes 1.4 10^3/uL (1.0-4.8); ABS Monocytes 0.5 10^3/uL (0.0-0.9); ABS Neutrophils 1.7 10^3/uL (1.5-7.6); ABS Nucleated RBC 0.07 10^3/ul; Anisocytosis 2+; Eosinophil % 2.8 %; Lymphocyte % 37.5 %; Polychromasia 1+
[2024-03-03] MEDS ORDERED: [UNRECOGNIZED DRUG - REMARK] PO PRN (11:26)
[2024-03-03] MEDS: Sulfur Hexaflouride MICROSPHR 25 MG VIAL IV ONE (14:39)
[2024-03-03] MEDS: Ondansetron 4 mg VIAL 2 MG/ML 2 ml VIAL IV PRN (15:00)
[2024-03-03 16:24] LABS: Magnesium 1.7 mg/dL (1.9-2.7); Potassium Redraw 3.9 mmol/L (3.5-5.0)
[2024-03-03] MEDS: Magnesium Sulfate 2 gm BAG 2 GM/50 ML BAG IVPB ONE (17:24)
[2024-03-04 07:26] LABS: Albumin 2.7 g/dL (3.2-5.2); Albumin/Globulin Ratio 1.3 (1-3); Calcium 9.5 mg/dL (8.6-10.3); Creatinine, Serum 0.78 mg/dL (0.51-0.95); Globulin 2.1 g/dL (2-4); Potassium 4.2 mmol/L (3.5-5.0); Total Bilirubin 0.6 mg/dL (0.2-1.0); Total Protein 4.8 g/dL (6.4-8.9); eGFR CKD-EPI 86.9 (>60)
[2024-03-04 08:49] LABS: Hematocrit 27.3 % (35-45); Hemoglobin 9.2 g/dL (11.5-14.3); Mean Corpuscular Hemoglobin 31.2 pg (27-33); Mean Corpuscular Hgb Conc 33.7 g/dL (31-36); Mean Corpuscular Volume 92.6 fL (80-97); Red Blood Count 2.94 10^6/uL (3.63-4.92); Red Cell Distribution Width 18.8 % (12-17)
[2024-03-04 10:32] LABS: ABS Eosinophils 0.1 10^3/uL (0.0-0.5); ABS Lymphocytes 1.1 10^3/uL (1.0-4.8); ABS Monocytes 0.3 10^3/uL (0.0-0.9); ABS Neutrophils 1.5 10^3/uL (1.5-7.6); ABS Nucleated RBC 0.12 10^3/ul; Acanthocytes 1+; Eosinophil % 1.8 %; Lymphocyte % 38.3 %; Mean Platelet Volume 8.6 fL (7.5-11.2); Platelet Count 151 10^3/uL (150-450); Polychromasia 1+
[2024-03-04 14:46] LABS: Body Fluid Source Cerebral Spinal
[2024-03-04 15:00] LABS: CSF Glucose 51 mg/dL (40-70)
[2024-03-04 15:01] LABS: Body Fluid Appearance Clear; Body Fluid Color Colorless
[2024-03-04 15:20] LABS: CSF Body Fluid WBC 0 /mcL
[2024-03-04 15:30] LABS: CSF Tube # 3
[2024-03-04] MEDS: Oxymetazoline 0.05% NASAL SPR 15 ML BTL BOTH NARES ONE (16:57)
[2024-03-04] MEDS: Enoxaparin 40 MG/0.4 ML SYR SUBCUT SCH (22:13)
[2024-03-05 06:29] LABS: Hematocrit 28.3 % (35-45); Hemoglobin 9.4 g/dL (11.5-14.3); Mean Corpuscular Hgb Conc 33.2 g/dL (31-36); Mean Corpuscular Volume 93.2 fL (80-97); Mean Platelet Volume 8.5 fL (7.5-11.2); Platelet Count 152 10^3/uL (150-450); Red Blood Count 3.03 10^6/uL (3.63-4.92); Red Cell Distribution Width 19.2 % (12-17); White Blood Count 3.7 10^3/uL (3.8-11.8)
[2024-03-05 06:46] LABS: Calcium 10.2 mg/dL (8.6-10.3); Creatinine, Serum 0.88 mg/dL (0.51-0.95); eGFR CKD-EPI 75.2 (>60)
[2024-03-05 06:51] LABS: ABS Eosinophils 0.1 10^3/uL (0.0-0.5); ABS Lymphocytes 1.4 10^3/uL (1.0-4.8); ABS Monocytes 0.4 10^3/uL (0.0-0.9); ABS Neutrophils 1.8 10^3/uL (1.5-7.6); ABS Nucleated RBC 0.16 10^3/ul; Anisocytosis 1+; Eosinophil % 2.7 %; Lymphocyte % 37.9 %; Nucleated Red Blood Cells % 4.2 %/100WBC (0.0-0.8); Polychromasia 1+
[2024-03-05 08:58] LABS: Vitamin D Total 25(OH) 70.6 ng/mL (20-50)
[2024-03-05] MEDS: Iodixanol (CONTRAST) 320 MG/ML 100 ML SDV IV ONE (09:08)
[2024-03-05 09:18] LABS: Calcium (PTH Intact) 9.9 mg/dL (8.6-10.3)
[2024-03-06 06:39] LABS: ABS Basophils 0.1 10^3/uL (0.0-0.1); ABS Eosinophils 0.1 10^3/uL (0.0-0.5); ABS Lymphocytes 1.4 10^3/uL (1.0-4.8); ABS Monocytes 0.4 10^3/uL (0.0-0.9); ABS Neutrophils 1.9 10^3/uL (1.5-7.6); ABS Nucleated RBC 0.09 10^3/ul; Eosinophil % 1.8 %; Hemoglobin 9.5 g/dL (11.5-14.3); Lymphocyte % 36.1 %; Mean Corpuscular Hemoglobin 31.9 pg (27-33); Mean Corpuscular Hgb Conc 34.1 g/dL (31-36); Mean Corpuscular Volume 93.6 fL (80-97); Mean Platelet Volume 8.3 fL (7.5-11.2); Nucleated Red Blood Cells % 2.5 %/100WBC (0.0-0.8); Platelet Count 138 10^3/uL (150-450); Red Blood Count 2.99 10^6/uL (3.63-4.92); Red Cell Distribution Width 19.6 % (12-17); White Blood Count 3.8 10^3/uL (3.8-11.8)
[2024-03-06 07:24] LABS: Calcium 10.6 mg/dL (8.6-10.3); Creatinine, Serum 0.92 mg/dL (0.51-0.95); Magnesium 1.7 mg/dL (1.9-2.7); Potassium 3.8 mmol/L (3.5-5.0); eGFR CKD-EPI 71.3 (>60)
[2024-03-06] MEDS: Magnesium Sulfate 2 gm BAG 2 GM/50 ML BAG IVPB ONE (10:15)
[2024-03-06 13:56] VITALS: BP 101/78
== END 2024-03-06 18:35 | disposition home or self-care (01) | DRG 111 ==
LOC: ED 15:44 → EDHOLD 22:46 → SUATTDRO 22:46 → MED 03-03 08:09
PROVIDERS: ADMIT Hospitalist; ATTEND Internal Medicine